=== PATIENT | female | born 1990 | race African-American/Black ===

== ENCOUNTER 2017-05-31 03:37 | Emergency (ER) | payer MEDICAID ==
[~2017-05-31] VITALS: Ht 167.6 cm; Wt 109.0 kg
[~2017-05-31 03:37] MED LIST: ATOR10TA69 PO; LACO100T2 PO; LEVE1000 PO; OXCA150T5 PO
[2017-05-31] MEDS ORDERED: SODIUM CHLORIDE 0.9% 1,000 ML IV ONE (04:06)
[2017-05-31] MEDS ORDERED: LEVETIRACETAM 500MG PREMIX 100 ML IV ONE (04:15)
[2017-05-31 04:58] LABS: HCG SCREEN NEGATIVE
[2017-05-31 05:00] LABS: BASOPHILS % 1.1 % (0.0-2.0); HEMATOCRIT. 39.8 % (36.0-48.0); LYMPHOCYTES % 19.6 % (20.0-50.0); MEAN CORPUSCULAR HEMOGLOBIN 31.5 pg (28.0-32.0); MEAN PLATELET VOLUME 9.4 fl (7.4-10.4); MONOCYTES % 11.6 % (2.0-8.0); NEUTROPHILS % 66.7 % (40.0-76.0); PLATELET 282 x1000/uL (130-400); RED BLOOD CELL COUNT 4.14 mill/uL (4.2-5.4); RED CELL DISTRIBUTION WIDTH 14.3 % (11.6-14.6)
[2017-05-31 05:08] LABS: AMMONIA 32 uMol/L (<32)
[2017-05-31 05:12] LABS: CARBON DIOXIDE 26 mEq/L (21-32); CHLORIDE 106 mEq/L (98-107); CREATINE KINASE 94 IU/L (26-192); ETHANOL BLOOD < 10 mg/dL
[2017-05-31 06:27] VITALS: BP 100/47
== END 2017-05-31 07:03 | disposition home or self-care (01) ==
LOC: ER 03:51
DX: G40.909 Epilepsy, unspecified, not intractable, without status epilepticus (principal); Z88.8 Allergy status to other drugs, medicaments and biological substances
CPT/HCPCS: 36415; 70450; 71010; 80053; 80307; 80329; 82140; 82550; 83605; 84443; 84703; 85025; 93005; 96365; 99285; G0482; J1953; J7030; Z7610

== ENCOUNTER 2018-03-03 22:47 | Emergency (ER) | payer MEDICAID ==
[~2018-03-03] VITALS: Ht 170.2 cm; Wt 114.0 kg
[2018-03-04 03:37] LABS: BASOPHILS % 0.8 % (0.0-2.0); EOSINOPHILS % 0.5 % (0.0-5.0); HEMATOCRIT. 41.8 % (36.0-48.0); HEMOGLOBIN. 14.1 g/dL (12.0-16.0); LYMPHOCYTES % 12.4 % (20.0-50.0); MEAN CORPUSCULAR HEMOGLOBIN 32.7 pg (28.0-32.0); MEAN CORPUSCULAR VOLUME 97.2 fL (81.0-99.0); MEAN PLATELET VOLUME 9.7 fl (7.4-10.4); MONOCYTES % 5.5 % (2.0-8.0); NEUTROPHILS % 80.8 % (40.0-76.0); PLATELET 250 x1000/uL (130-400); RED CELL DISTRIBUTION WIDTH 14.4 % (11.6-14.6)
[2018-03-04 03:40] LABS: CHLORIDE 106 mEq/L (98-107); INR 1.1; PROTHROMBIN TIME 11.1 sec (9.4-11.6)
[2018-03-04 04:13] LABS: CLARITY URINE CLEAR (CLEAR); COLOR URINE YELLOW (YELLOW); KETONES URINE TRACE (NEGATIVE); LEUKOCYTE ESTERASE URINE NEGATIVE (NEGATIVE); NITRITE URINE NEGATIVE (NEGATIVE); OCCULT BLOOD URINE NEGATIVE (NEGATIVE); PH URINE 6.5 (4.5-8.0); PROTEIN URINE NEGATIVE (NEGATIVE); SPECIFIC GRAVITY URINE 1.007 (1.005-1.030)
[2018-03-04 05:20] VITALS: BP 147/99
== END 2018-03-04 06:02 | disposition home or self-care (01) ==
LOC: ER 22:47
DX: R56.9 Unspecified convulsions (principal); R10.9 Unspecified abdominal pain; Z88.8 Allergy status to other drugs, medicaments and biological substances; Z91.14 Patient's other noncompliance with medication regimen; F12.10 Cannabis abuse, uncomplicated
CPT/HCPCS: 36415; 80053; 81003; 83690; 85025; 85610; 99284

== ENCOUNTER 2022-05-08 07:35 | Emergency (ER) | payer MEDICAID ==
[~2022-05-08] VITALS: Ht 175.3 cm; Wt 118.0 kg
[2022-05-08] MEDS ORDERED: LEVETIRACETAM 1000MG PREMIX 100 ML IV ONE (07:45)
[2022-05-08 09:24] LABS: BASOPHILS % 0.6 % (0.0-2.0); EOSINOPHILS % 0.7 % (0.0-5.0); HEMATOCRIT. 45.7 % (36.0-48.0); HEMOGLOBIN. 15.3 g/dL (12.0-16.0); LYMPHOCYTES % 24.8 % (20.0-50.0); MEAN CORPUSCULAR HEMOGLOBIN 33.1 pg (28.0-32.0); MEAN CORPUSCULAR VOLUME 98.6 fL (81.0-99.0); MEAN PLATELET VOLUME 9.2 fl (7.4-10.4); MONOCYTES % 7.7 % (2.0-8.0); NEUTROPHILS % 66.2 % (40.0-76.0); PLATELET 339 x1000/uL (130-400); RED BLOOD CELL COUNT 4.64 mill/uL (4.2-5.4); RED CELL DISTRIBUTION WIDTH 14.3 % (11.6-14.6)
[2022-05-08 09:30] LABS: CHLORIDE 98 mEq/L (98-107)
[2022-05-08 09:39] LABS: ETHANOL BLOOD < 10 mg/dL
[2022-05-08] MEDS ORDERED: LACO200T2 PO (12:42)
[2022-05-08] MEDS ORDERED: OXCA300T31 PO (12:42)
[2022-05-08] MEDS ORDERED: LEVE1000 PO (12:42)
[2022-05-08 13:53] VITALS: BP 137/90
== END 2022-05-08 13:55 | disposition home or self-care (01) ==
LOC: ER 07:37
DX: G40.909 Epilepsy, unspecified, not intractable, without status epilepticus (principal); F12.10 Cannabis abuse, uncomplicated; Z79.899 Other long term (current) drug therapy
CPT/HCPCS: 36415; 70450; 80053; 80320; 85025; 96365; 96366; 99284; J1953; Z7610; G0480